=== PATIENT | female | born 1975 | race African-American/Black ===

== ENCOUNTER 2017-12-10 23:12 | Emergency (ER) | payer BC ==
[2017-12-11] MEDS ORDERED: IBUPROFEN 800 MG TABLET PO ONE (01:02)
[2017-12-11] MEDS ORDERED: HYDROCODONE/ACETAMINOPHEN 5-325 MG (6 TAB/ER DISP) PO PRN (01:02)
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
[2017-12-11 02:19] VITALS: BP 137/89
== END 2017-12-11 01:52 | disposition home or self-care (01) ==
LOC: EDBD → ER 23:12
DX: S43.409A Unspecified sprain of unspecified shoulder joint, initial encounter (principal); S40.021A Contusion of right upper arm, initial encounter; M25.511 Pain in right shoulder; M25.512 Pain in left shoulder; Y04.8XXA Assault by other bodily force, initial encounter
CPT/HCPCS: 99284